=== PATIENT | male | born 1950 | race Caucasian/White ===

== ENCOUNTER → 2016-09-14 | Day surgery (SDC) | payer OTHER ==
[~2016-09-14] VITALS: Ht 177.8 cm; Wt 95.3 kg
[~2016-09-14] MED LIST: CEFAD50CA PO; CIAL10TA PO; CIPR500T3 PO; CIPROFLOXACIN 500 MG TAB PO SCH; CONRAY-60 60% 50ML VIAL (Q9961) As Ordered ONE; CONRAY-60 60% 50ML VIAL (Q9961) XX ONE; FLOM5CAP PO; KETOROLAC 60 MG/2 ML VIAL (J1885) As Ordered ONE; LIDOCAINE 2% INJ 100 MG/5 ML SDV (FOR ANES.) As Ordered ONE; LR 1,000 ML IV SCH; LevoFLOXacin IV 500 MG in APPROPRIATE DILUENT 1 EA IV ONE; METOCLOPRAMIDE INJ 10MG/2ML VIAL (J2765) As Ordered ONE; MIDAZOLAM INJ 2 MG/2 ML VIAL (J2250) As Ordered ONE; OMEP20.64 PO; ONDANSETRON 4MG/2ML VIAL (J2405) As Ordered ONE; OXYC1TAB23 PO; PERCOCET 5MG/325MG TAB PO PRN; PRAV40TA2 PO; PROPOFOL 200 MG/20 ML VIAL As Ordered ONE; RANI15TA PO; SUCCINYLCHOLINE 100 MG/5 ML SYRINGE (J0330) As Ordered ONE; VITA50LO2 PO; dexameTHASONE 4 MG/ML 1ML VIAL (J1100) As Ordered ONE; fentaNYL 100 MCG/2 ML INJECTION (J3010) As Ordered ONE; fentaNYL 100 MCG/2 ML INJECTION (J3010) IV PRN
--- NOTE | 2016-09-14 17:38 | REP ---
Retrograde pyelogram: Three views. History: Left ureteral stone. 41 seconds of fluoroscopy time is reported. Findings: A sequence of three last image hold fluoroscopically obtained spot radiographs of the left abdomen document left ureteral cannulation and double pigtail stent placement. Signed by Edison Rodas MD 09/15/2016 02:58 P
[2016-09-14 18:45] VITALS: BP 155/79
--- NOTE | 2016-09-14 23:20 | RO ---
DATE OF PROCEDURE: 09/14/2016 PREPROCEDURE DIAGNOSIS: Left distal ureteral stone. POSTPROCEDURE DIAGNOSIS: Left distal ureteral stone. PROCEDURE: Cystoscopy, left retrograde pyelogram, left ureteroscopy, plus extraction of stone with grasper, plus left double J stent placement, #6-Ind[place]ian Mansfield Cook. SURGEON: Dr. Kash Joyce INSTRUMENTATION AND CONTROLS DESIGNER: None. ANESTHESIA: General. FINDINGS: 3.5 mm left distal ureteral stone, left hydronephrosis. COMPLICATIONS: None. ESTIMATED BLOOD LOSS: N/A. HISTORY OF THE PRESENT ILLNESS: This is a 66-year-old male patient that has a left distal ureteral stone that has been treated with medical expulsive therapy and the patient cannot expel it. For this reason he has consented for a cystoscopy, left retrograde pyelogram, possible left ureteroscopy, possible left basket extraction of stone, possible left laser stone lithotripsy, possible left double J stent placement. DESCRIPTION OF PROCEDURE: With the patient under general anesthesia in supine modified low lithotomy position, after prepping and draping the area of concern, which included the entire genitalia and abdomen, we started by introducing a cystoscope #21-Indonesian in diameter with 30-degree lens. The fossa navicularis, penile urethra, bulbar urethra, and membranous urethra were totally normal. The prostatic urethra had lateral lobes touching and had a small middle lobe. Both ureteral orifices were seen. The left ureteral orifice had some bullous edema. We passed a Pollack catheter with difficulty into the distal portion of the left ureteral orifice. With a guidewire, we went up to the kidney and then removed the Pollack catheter out. We then proceeded to pass a double-lumen catheter and did a retrograde pyelogram where you could see hydronephrosis on the left side. We then proceeded to put a second guidewire up to the kidney, curved. We then proceeded to actually go through one guidewire with a flexible ureteroscope up to the kidney. At that moment in time, we did a formal nephroscopy with a flexible ureteroscope, upper pole, lower pole, and midpole. There were no stones in the kidney. We did a retrograde flexible ureteroscopy. At that moment in time, we could actually see very well the ureter. There were no stones in the proximal ureter, mid ureter, and in terminal ureter. At the level of the intramural ureter, there was a very small stone that actually came with us by extracting the ureteroscope at the same time and it popped out at the same time as we were extracting the ureteroscope. At that moment in time, we flushed it and we captured it. This was sent for biochemical analysis. We then proceeded to actually introduce a cystoscope following the safety guidewire and introduced a left double J stent, #6-Ind[place]ian Mansfield Cook. Once it was in good position, we could take the guidewire out and the curl in the kidney and the curl in the bladder were seen. We emptied the bladder and removed the cystoscope. PLAN: The patient will go home today with antibiotic and pain medication. Once he is tolerating regular diet and ambulating very well and in 1 week, we will actually remove the left double J stent.
[2016-09-22 00:15] LABS: Size 7x3x3 mm (.)
== END | disposition home or self-care (01) ==
LOC: M SDC 13:19
PROVIDERS: ATTEND Urology
DX: N20.1 Calculus of ureter (principal); N13.30 Unspecified hydronephrosis; K21.9 Gastro-esophageal reflux disease without esophagitis; Z88.0 Allergy status to penicillin; E78.5 Hyperlipidemia, unspecified; Z79.899 Other long term (current) drug therapy
CPT/HCPCS: 36415; 52332; 52352; 74420; 82360; 86850; 86900; 86901; 88300; C1726; C1769; C2617; J0330; J1100; J1885; J1956; J2250; J2405; J2765; J3010; Q9961

== ENCOUNTER → 2017-01-31 | Outpatient (REF) | payer OTHER ==
[~2017-01-31] MED LIST changes: -CIPROFLOXACIN 500 MG TAB PO SCH; -CONRAY-60 60% 50ML VIAL (Q9961) As Ordered ONE; -CONRAY-60 60% 50ML VIAL (Q9961) XX ONE; -KETOROLAC 60 MG/2 ML VIAL (J1885) As Ordered ONE; -LIDOCAINE 2% INJ 100 MG/5 ML SDV (FOR ANES.) As Ordered ONE; -LR 1,000 ML IV SCH; -LevoFLOXacin IV 500 MG in APPROPRIATE DILUENT 1 EA IV ONE; -METOCLOPRAMIDE INJ 10MG/2ML VIAL (J2765) As Ordered ONE; -MIDAZOLAM INJ 2 MG/2 ML VIAL (J2250) As Ordered ONE; -ONDANSETRON 4MG/2ML VIAL (J2405) As Ordered ONE; -PERCOCET 5MG/325MG TAB PO PRN; -PROPOFOL 200 MG/20 ML VIAL As Ordered ONE; -SUCCINYLCHOLINE 100 MG/5 ML SYRINGE (J0330) As Ordered ONE; -dexameTHASONE 4 MG/ML 1ML VIAL (J1100) As Ordered ONE; -fentaNYL 100 MCG/2 ML INJECTION (J3010) As Ordered ONE; -fentaNYL 100 MCG/2 ML INJECTION (J3010) IV PRN
== END ==
LOC: M SMT 12:56
PROVIDERS: ATTEND Urology
DX: R97.20 Elevated prostate specific antigen [PSA] (principal)

== ENCOUNTER → 2018-01-04 | Outpatient (REF) | payer MEDICARE ==
[2018-01-05 09:51] LABS: AMORPHOUS SEDIMENT SMALL (NEGATIVE); APPEARANCE, URINE HAZY (CLEAR); BACTERIA, URINE AUTO NEGATIVE (NEGATIVE); BILIRUBIN, URINE AUTO NEGATIVE (NEGATIVE); BLOOD, URINE BLOOD NEGATIVE (NEGATIVE); CALCIUM OXALATE CRYSTALS SMALL; COLOR, URINE YELLOW (YELLOW); GLUCOSE, URINE (UA) AUTO NEGATIVE (NEGATIVE); KETONE, URINE AUTO NEGATIVE (NEGATIVE); LEUKOCYTE ESTERASE, URINE AUTO NEGATIVE (NEGATIVE); MUCUS, URINE SMALL (NEGATIVE); NITRITE, URINE AUTO NEGATIVE (NEGATIVE); PROTEIN, URINE AUTO NEGATIVE (NEGATIVE); RBC, URINE AUTO 11 /HPF (0-3); SPECIFIC GRAVITY URINE AUTO 1.017 (1.002-1.035); SQUAMOUS EPITHELIAL CELL UR AU 0 /HPF (0-6); UROBILINOGEN, URINE AUTO 0.2 mg/dL (0.0-2.0); WBC, URINE AUTO 3 /HPF (0-3)
== END ==
LOC: M SMT 08:12
DX: R31.0 Gross hematuria (principal)
CPT/HCPCS: 81001

== ENCOUNTER → 2018-09-20 | Outpatient (REF) | payer MEDICARE ==
[~2018-09-20] MED LIST changes: +FLOM0.4C39 PO; -FLOM5CAP PO; +OMEP1CAP77 PO; -OMEP20.64 PO
[2018-09-20 20:59] LABS: AMORPHOUS SEDIMENT MODERATE (NEGATIVE); APPEARANCE, URINE TURBID (CLEAR); BACTERIA, URINE AUTO NEGATIVE (NEGATIVE); BILIRUBIN, URINE AUTO NEGATIVE (NEGATIVE); BLOOD, URINE BLOOD NEGATIVE (NEGATIVE); COLOR, URINE STRAW (YELLOW); GLUCOSE, URINE (UA) AUTO NEGATIVE (NEGATIVE); KETONE, URINE AUTO NEGATIVE (NEGATIVE); LEUKOCYTE ESTERASE, URINE AUTO NEGATIVE (NEGATIVE); MUCUS, URINE SMALL (NEGATIVE); NITRITE, URINE AUTO NEGATIVE (NEGATIVE); PROTEIN, URINE AUTO NEGATIVE (NEGATIVE); RBC, URINE AUTO 0 /HPF (0-3); SPECIFIC GRAVITY URINE AUTO 1.023 (1.002-1.035); SQUAMOUS EPITHELIAL CELL UR AU 0 /HPF (0-6); UROBILINOGEN, URINE AUTO 0.2 mg/dL (0.0-2.0); WBC, URINE AUTO 0 /HPF (0-3)
== END ==
LOC: M SMT 12:55
PROVIDERS: ATTEND Nurse Practitioner Women's Health
DX: R97.20 Elevated prostate specific antigen [PSA] (principal)
CPT/HCPCS: 81001; 87086; G0463

== ENCOUNTER → 2019-01-19 | Outpatient (REF) | payer MEDICARE | LOC: M LAB LCGH 10:06 | PROVIDERS: ATTEND Physician Assistant | DX: D48.5 Neoplasm of uncertain behavior of skin (principal) ==

== ENCOUNTER → 2019-03-19 | Outpatient (REF) | payer MEDICARE | LOC: M LAB LCGH 14:57 | PROVIDERS: ATTEND Surgery | DX: C44.611 Basal cell carcinoma of skin of unspecified upper limb, including shoulder (principal) ==

== ENCOUNTER → 2023-09-14 | Outpatient (REF) | payer MEDICARE ==
[~2023-09-14] MED LIST changes: +CEFA500C2 PO; -CEFAD50CA PO; +CENT1TAB2 PO; +FINA5TAB2 PO; +HYDR12.55 PO; +POTA-151 PO; +[UNRECOGNIZED DRUG - OTHER] PO
== END ==
LOC: M SFHCDERM 18:14
PROVIDERS: ATTEND Physician Assistant
DX: L85.8 Other specified epidermal thickening (principal)

== ENCOUNTER → 2024-11-13 | Outpatient (REF) | payer MEDICARE | LOC: M SFHCDERM 17:07 | PROVIDERS: ATTEND Physician Assistant | DX: L08.9 Local infection of the skin and subcutaneous tissue, unspecified (principal) ==